=== PATIENT | male | born 1945 | race Caucasian/White ===

== ENCOUNTER 2019-12-09 14:44 | Emergency (ER) | payer MEDICARE, OTHER ==
--- NOTE | 2019-12-09 15:36 | EDM.PDOC ---
ED HPI GENERAL MEDICAL PROBLEM - General Chief Complaint: Chest Pain Stated Complaint: FALL/R SIDE BACK AND RIB PAIN Time Seen by Provider: 12/09/19 15:05 Source of Information: Reports: Patient History Limitations: Reports: No Limitations - History of Present Illness INITIAL COMMENTS - FREE TEXT/NARRATIVE: Patient is a 74-year-old male who presents with complaints of right rib and abdominal pain. Patient states that on Thursday he had a ground-level fall in his driveway and that he landed on his right elbow and side. Initially the pain was only in his elbow, however over the last day it has developed into right chest and abdominal pain. Patient is on Coumadin for history of A. fib. He is also diabetic. He denies any dizziness or shortness of breath associated with the pain. Right Chest Pain Score (Numeric/FACES): 8 - Related Data Allergies Allergy/AdvReac Type Severity Reaction Status Date / Time lisinopril Allergy Other Verified 12/09/19 15:00 Home Meds: Home Meds Aspirin [Adult Low Dose Aspirin EC] 81 mg PO DAILY 03/16/14 [History] Isosorbide Mononitrate [Imdur] 30 mg PO DAILY 03/16/14 [History] Losartan [Cozaar] 50 mg PO BID 03/16/14 [History] Metoprolol Tartrate [Lopressor] 100 mg PO DAILY 03/16/14 [History] Nitroglycerin [Nitrostat] 0.4 mg SL ASDIRECTED PRN 03/16/14 [History] metFORMIN [Glucophage] 850 mg PO TID 03/16/14 [History] Cholecalciferol (Vitamin D3) [Vitamin D] 1,000 unit PO DAILY 12/09/14 [History] Furosemide [Lasix] 40 mg PO DAILY 12/09/14 [History] Hydrocodone/Acetaminophen [Hydrocodon-Acetaminophen 5-325] 1 - 2 each PO Q6HR PRN #20 tablet 09/04/18 [Rx] Isosorbide Mononitrate [Isosorbide Mononitrate ER] 30 mg PO DAILY 09/04/18 [ History] Potassium Chloride 20 meq PO DAILY 09/04/18 [History] Tamsulosin HCl [Flomax] 0.4 mg PO DAILY #7 cap.er.24h 09/04/18 [Rx] Warfarin Sodium [Coumadin] 7.5 mg PO MOTUWETH 09/04/18 [History] Warfarin [Coumadin] 5 mg PO SUFRSA 09/04/18 [History] atorvaSTATin [Lipitor] 40 mg PO BEDTIME 09/04/18 [History] predniSONE [Prednisone] 5 mg PO DAILY 09/04/18 [History] Acetaminophen/HYDROcodone [[place] 325-5 MG] 1 tab PO Q4H PRN #10 tablet 12/09/19 [Rx] Past Medical History HEENT History: Reports: Impaired Vision, Other (See Below) Other HEENT History: 2 cornea transplant Cardiovascular History: Reports: Afib, Arrhythmia, Heart Failure, High Cholesterol, Hypertension Endocrine/Metabolic History: Reports: Diabetes, Type II Social & Family History - Tobacco Use Smoking Status *Q: Never Smoker - Caffeine Use Caffeine Use: Reports: Coffee, Soda - Recreational Drug Use Recreational Drug Use: No ED ROS GENERAL - Review of Systems Review Of Systems: Comprehensive ROS is negative, except as noted in HPI. ED EXAM, GENERAL - Physical Exam Exam: See Below Exam Limited By: No Limitations General Appearance: Alert, WD/WN, No Apparent Distress Respiratory/Chest: No Respiratory Distress, Lungs Clear, Normal Breath Sounds, No Accessory Muscle Use, Other (Right lateral chest wall tenderness) Cardiovascular: Normal Peripheral Pulses, Regular Rate, Rhythm, No Edema, No Gallop, No JVD, No Murmur, No Rub GI/Abdominal: Normal Bowel Sounds, Soft, No Organomegaly, No Distention, No Abnormal Bruit, No Mass, Tender (Left lateral upper abdominal pain.) Back Exam: Normal Inspection, Full Range of Motion, NT Extremities: Normal Inspection, Normal Range of Motion, No Pedal Edema, Normal Capillary Refill, Other (Tenderness to the right elbow. No ecchymosis or edema noted. Full range of motion.) Psychiatric: Normal Affect, Normal Mood Skin Exam: Warm, Dry, Intact, Normal Color, No Rash Course - Vital Signs Last Recorded V/S: Last Vital Signs Temp 97.8 F 12/09/19 19:07 Pulse 108 H 12/09/19 19:07 Resp 20 12/09/19 19:07 BP 159/99 H 12/09/19 19:07 Pulse Ox 90 L 12/09/19 19:07 - Orders/Labs/Meds Orders: Active Orders 24 hr Category Date Time Status RT Incentive Spirometry [RC] ASDIRECTED Care 12/09/19 17:28 Active Chest Abdomen Pelvis wo Cont [CT] Stat Exams 12/09/19 16:29 Taken Elbow Min 3V Rt [CR] Stat Exams 12/09/19 17:18 Taken Labs: Laboratory Tests 12/09/19 12/09/19 12/09/19 Range/Units 15:33 15:33 15:33 WBC 10.35 H (4.23-9.07) K/mm3 RBC 5.08 (4.63-6.08) M/mm3 Hgb 14.6 (13.7-17.5) gm/dl Hct 46.3 (40.1-51.0) % MCV 91.1 (79.0-92.2) fl MCH 28.7 (25.7-32.2) pg MCHC 31.5 L (32.2-35.5) g/dl RDW Std Deviation 46.2 H (35.1-43.9) fL Plt Count 278 (163-337) K/mm3 MPV 10.1 (9.4-12.3) fl Neut % (Auto) 84.8 H (34.0-67.9) % Lymph % (Auto) 8.4 L (21.8-53.1) % Luce % (Auto) 6.1 (5.3-12.2) % Eos % (Auto) 0.4 L (0.8-7.0) Baso % (Auto) 0.2 (0.1-1.2) % Neut # (Auto) 8.78 H (1.78-5.38) K/mm3 Lymph # (Auto) 0.87 L (1.32-3.57) K/mm3 Luce # (Auto) 0.63 (0.30-0.82) K/mm3 Eos # (Auto) 0.04 (0.04-0.54) K/mm3 Baso # (Auto) 0.02 (0.01-0.08) K/mm3 Manual Slide Review Abnormal smear PT 27.9 H (9.7-12.0) SECONDS INR 2.71 Sodium 135 L (136-145) mEq/L Potassium 5.1 (3.5-5.1) mEq/L Chloride 98 (98-107) mEq/L Carbon Dioxide 23 (21-32) mEq/L Anion Gap 19.1 H (5-15) BUN 23 H (7-18) mg/dL Creatinine 1.5 H (0.7-1.3) mg/dL Est Cr Clr Drug Dosing 45.99 mL/min Estimated GFR (MDRD) 46 (>60) mL/min BUN/Creatinine Ratio 15.3 (14-18) Glucose 327 H (83-115) mg/dL Calcium 9.9 (8.5-10.1) mg/dL Total Bilirubin 0.7 (0.2-1.0) mg/dL AST 19 (15-37) U/L ALT 33 (16-63) U/L Alkaline Phosphatase 93 (46-116) U/L Total Protein 8.5 H (6.4-8.2) g/dl Albumin 4.1 (3.4-5.0) g/dl Globulin 4.4 gm/dL Albumin/Globulin Ratio 0.9 L (1-2) - Re-Assessments/Exams Free Text/Narrative Re-Assessment/Exam: 12/09/19 16:45 Blood work shows a hemoglobin normal at 14.6, INR in a therapeutic range of 2.71 , BUN elevated at 23, creatinine elevated at 1.5, GFR low at 46. Based on these findings we will complete CT chest abdomen pelvis without contrast. 12/09/19 18:39 CT of the chest abdomen pelvis showed acute fractures of the fourth, fifth, sixth, seventh and possibly the eighth rib on the right. There is no signs of pneumothorax or pulmonary contusion. There are also findings of interstitial pneumonitis as well as some pulmonary nodules. Patient states that he was aware of the pulmonary nodules. CT of the abdomen showed a number of abdominal wall hernias as well as diverticulosis. There is no signs of bleeding or hematoma to the liver. Consulted with Dr. Jensen regarding the patient. After discussion with the patient, he has been getting around well at home and is comfortable going home with pain management. He states when he is not moving the pain is tolerable, however when standing up he has increased pain. Patient does have a pulse oximeter at home and states that he frequently checks checks his oxygenation. Patient has taken [place] for pain in the past and done well with this without oversedation or any other adverse effects. We will discharge the patient home with [place] for pain as well as an incentive spirometer. He has been instructed that if he should have any increasing shortness of breath or uncontrolled pain he should return to the emergency department. Also discussed that I would like him to follow-up with his primary care provider early next week for recheck. Discharge instructions as documented. Departure - Departure Time of Disposition: 18:45 Disposition: Home, Self-Care 01 Condition: Fair Clinical Impression: Fracture of rib Qualifiers: Encounter type: initial encounter Rib fracture type: multiple ribs Fracture type: closed Laterality: right Qualified Code(s): S22.41XA - Multiple fractures of ribs, right side, initial encounter for closed fracture - Discharge Information Prescriptions: Acetaminophen/HYDROcodone [[place] 325-5 MG] 1 tab PO Q4H PRN #10 tablet PRN Reason: Pain Instructions: Rib Fracture, [id number] Referrals: Beatrice Sheppard [Primary Care Provider] - Forms: ED Department Discharge Additional Instructions: You were seen in the emergency department today for right sided chest wall pain after falling 2 days ago. Work-up included blood work, and x-ray of your right elbow, as well as a CT of the chest abdomen and pelvis. As we discussed, the CT did show that you have fractures to the right fourth, fifth, sixth, seventh and possibly the eighth ribs. There are no signs of bleeding or other emergent abnormalities to your chest or abdomen. Recommend that you take over-the- counter Tylenol 1000 mg every 4-6 hours routinely. For pain not relieved by Tylenol, prescription for [place] has been sent to [facility]. As we discussed, I do recommend that you continue to monitor your oxygen saturation at home. If you notice that your saturations are running lower than normal, if you have any increasing shortness of breath, or if you begin to run a fever, we would recommend that you return to the emergency department. You have been provided an incentive spirometer. Use this every 15 to 20 minutes while awake during the day. This will help to prevent you from getting pneumonia. I recommend that you call to schedule follow-up appointment with your primary care provider on Thursday morning. A copy of the CT reports has been sent with you to show your provider. If you should experience any new or worsening symptoms of concern, please do not hesitate to return to the emergency department. Sepsis Event Note - Evaluation Sepsis Screening Result: No Definite Risk - Focused Exam Vital Signs: Vital Signs Temp Pulse Resp BP Pulse Ox 12/09/19 19:07 97.8 F 108 H 20 159/99 H 90 L 12/09/19 15:02 162/80 H 12/09/19 14:55 97.9 F 92 18 93 L Date Exam was Performed: 12/09/19 Time Exam was Performed: 21:49 - My Orders Last 24 Hours: My Active Orders 12/09/19 16:29 Chest Abdomen Pelvis wo Cont [CT] Stat 12/09/19 17:18 Elbow Min 3V Rt [CR] Stat 12/09/19 17:28 RT Incentive Spirometry [RC] ASDIRECTED - Assessment/Plan Last 24 Hours: My Active Orders 12/09/19 16:29 Chest Abdomen Pelvis wo Cont [CT] Stat 12/09/19 17:18 Elbow Min 3V Rt [CR] Stat 12/09/19 17:28 RT Incentive Spirometry [RC] ASDIRECTED
[2019-12-09 19:15] VITALS: BP 159/99; PULSE 108
--- NOTE | 2019-12-10 14:05 | CT ---
CT chest Technique: Multiple axial sections through the chest were obtained. Intravenous contrast was not utilized. Comparison: No prior chest CT is available, previous chest x-ray of 09/04/18 is available. Findings: Mediastinum shows atherosclerotic calcification within the aorta without aneurysm. Small mediastinal lymph nodes are seen which are felt to be within normal limits. Increased fat within the mediastinum is seen which is felt to be a normal variant. No pericardial thickening is seen. Diffuse coronary artery calcification is noted. Lungs show scattered fibrosis. Emphysematous change is also noted. Several small nodules are noted within the right upper lung measuring up to 5 mm. Lungs otherwise are clear with no acute parenchymal contusion. No pneumothorax is seen. Fractures are noted lateral right 4th, 5th, 6th, 7th and 8th ribs. Several of these rib fractures show minimal displacement. No additional rib abnormality is appreciated. Thoracic spine shows scattered degenerative change without definite acute abnormality. Lateral reconstructed images of the sternum show no discrete fracture. Impression: 1. Fractures within the right 4th through 8th ribs as described above. 2. Interstitial fibrosis and emphysematous change. 3. Several small nodules within the upper right lung measuring up to 5 mm. Consider follow-up noncontrast chest CT study in one year to confirm stability. 4. No other acute finding is appreciated. Diagnostic code #9 CT abdomen and pelvis Technique: Multiple axial sections were obtained from above the dome of the diaphragm inferiorly through the pubic symphysis. Intravenous and oral contrast has not been given. Comparison: Prior CT abdomen and pelvis exam of 09/04/18 is available. Findings: Liver contains no focal abnormality. Spleen appears within normal limits. Adrenal glands show no nodule. Surgical clips are seen from prior cholecystectomy. Kidneys show no abnormal calcifications or hydronephrosis. Aortoiliac graft is noted within an abdominal aortic aneurysm. This is stable from previous exam. No retroperitoneal adenopathy or mesenteric abnormalities are seen. Fat-containing umbilical hernia is noted. More superiorly there is an anterior abdominal wall hernia to the right of midline. This hernia contains a loop of transverse colon. No evidence of colon obstruction is seen at this time. This finding is noted on previous exam. No additional abdominal wall hernia is noted. No pelvic mass or adenopathy is seen. Scattered diverticuli are noted within the sigmoid colon and descending colon without inflammatory change of diverticulitis. No free fluid or inflammatory change is identified. Bone window settings were reviewed. Degenerative change is noted within the lumbar spine. No acute osseous finding is seen within the spine or within the pelvis. Impression: 1. Findings as noted above believed to be stable. 2. Nothing acute is appreciated on noncontrast CT study of the abdomen and pelvis. Diagnostic code #3 This report was dictated in MDT I agree with preliminary report from tonja, finalized on 12/09/19, 7:12 PM Central Time
--- NOTE | 2019-12-10 14:05 | CR ---
Right elbow: 4 views of the right elbow were obtained. Comparison: Previous right elbow exam of 06/04/17. Deformity of the right elbow is seen compatible with old appearing fractures with several ununited fracture fragments. Findings are fairly stable from previous exam. Large joint effusion is seen. Secondary degenerative change appears to be present. No definite acute abnormality is appreciated. Impression: 1. Deformity of the right elbow compatible with old appearing fractures as noted above. 2. Joint effusion. 3. Degenerative change. Diagnostic code #3 This report was dictated in MDT
== END 2019-12-09 19:15 | disposition home or self-care (01) ==
LOC: JD.ED 14:44
DX: S22.41XA Multiple fractures of ribs, right side, initial encounter for closed fracture (principal); I11.0 Hypertensive heart disease with heart failure; I50.9 Heart failure, unspecified; E11.9 Type 2 diabetes mellitus without complications; I48.91 Unspecified atrial fibrillation; Z79.01 Long term (current) use of anticoagulants; Z79.899 Other long term (current) drug therapy; Z79.82 Long term (current) use of aspirin; Z79.84 Long term (current) use of oral hypoglycemic drugs; Z88.8 Allergy status to other drugs, medicaments and biological substances; W18.30XA Fall on same level, unspecified, initial encounter
CPT/HCPCS: 36415; 71250; 71250-26; 73080-26-RT; 73080-RT; 74176; 74176-26; 80053; 85025; 85610; 99283; 99284-25